=== PATIENT | male | born 1985 | race Caucasian/White ===

== ENCOUNTER 2016-12-08 08:15 | Day surgery (SDC) | payer OTHER ==
[~2016-12-08 08:15] MED LIST: CELE50CA PO; ESOM20CA28 PO; LORA10CA PO; Lidocaine Topical 2% 30 mL Jelly ONE; RANI75TA21 PO
[2017-03-25] MEDS ORDERED: ESOM40CA41 PO (10:10)
[2017-03-25] MEDS ORDERED: CELE50CA PO (10:10)
[2017-03-25] MEDS ORDERED: LORA10CA PO (12:01)
== END 2016-12-08 23:59 | disposition home or self-care (01) ==
LOC: END 08:15
PROVIDERS: ATTEND Internal Medicine Gastroenterology
DX: K21.0 Gastro-esophageal reflux disease with esophagitis (principal)

== ENCOUNTER 2017-03-29 10:02 | Inpatient (IN) | payer OTHER ==
[~2017-03-29] VITALS: Ht 193 cm; Wt 89.7 kg
[2017-03-29] VITALS (7 sets, daily range): BP systolic 122–149; BP diastolic 68–95; PULSE 93–114; RESP 11–20; O2SAT 95–99
[2017-03-29] MEDS: CeFAZolin Inj 2 GM in IV Premix 1 EACH IV SCH ×2 (06:00→13:22)
[~2017-03-29 10:02] MED LIST changes: -ESOM20CA28 PO; +ESOM40CA41 PO; +Lactated Ringer's 1,000 ML IV ONE; -Lidocaine Topical 2% 30 mL Jelly ONE; -RANI75TA21 PO
[2017-03-29] MEDS ORDERED: Rocuronium 10 mg/mL 5 mL Inj ONE (10:03)
[2017-03-29] MEDS ORDERED: Ondansetron 2 mg/mL 2 mL Inj ONE (10:03)
[2017-03-29] MEDS ORDERED: Succinylcholine Chloride 20 mg/mL 5 mL Inj ONE (10:03)
[2017-03-29] MEDS ORDERED: HYDROmorphone 2 mg/mL Inj ONE (10:03)
[2017-03-29] MEDS ORDERED: Dexamethasone 4 mg/mL Inj ONE (10:03)
[2017-03-29] MEDS ORDERED: fentaNYL-PF 50 mCg/mL 2 mL Inj ONE (10:03)
[2017-03-29] MEDS ORDERED: Neostigmine 1 mg/mL 10 mL Inj ONE (10:03)
[2017-03-29] MEDS ORDERED: Propofol 10,000 mCg/mL 20 mL Inj ONE (10:03)
[2017-03-29] MEDS ORDERED: Phenylephrine/NS 100 mCg/mL 10 mL Syringe IVPUSH ONE (10:03)
--- NOTE | 2017-03-29 12:37 | PCM.HPANE ---
Patient Data Date of Service: March 29, 2017 Surgeon Admitting Provider: Attending Provider:Lucille Patel MD Primary Care Physician:Benji Finnegan Other Provider:Laila Burciaga Anesthesia Reason for Visit GERD GERD Ht/WT & BMI Height (Feet): 6 Height (Inches): 4 Weight (Kilograms): 87.7 Body Mass Index 23.00 Allergies Coded Allergies: No Known Allergies (Verified Allergy, Unknown, 08/31/16) Past Anesthesia History Anesthesia History: Denies:: Abnormal Airway, Anesthesia Reactions (requires more anesthetic, consc sedation doesnt work ), Difficult Intubation, Fam Anesthesia Reaction, Fam Malignant Hypertherm, Malignant Hyperthermia Diabetes History Hx Diabetes?: No MRSA MRSA: No (unsure if MRSA- hx of spider bite) Medications Reported Medications Loratadine (Claritin)10 Mg Ponhnfl85 Mg PO DAILY Ref 0 03/25/17 Celecoxib (Celebrex)50 Mg Tpfbsur478 Mg PO BID #30 CAPSULE Ref 0 03/25/17 Esomeprazole Magnesium (Nexium)40 Mg Capsule.dr40 Mg PO DAILY Ref 0 03/25/17 Discontinued Reported Medications Celecoxib (Celebrex)50 Mg Hyeudca99 Mg PO DAILY #30 CAPSULE Ref 0 09/01/16 Loratadine (Claritin)10 Mg Koxykma43 Mg PO DAILY Ref 0 09/01/16 Ranitidine (Zantac OTC)75 Mg Brztez29 Mg PO DAILY #1 PKG Ref 0 08/31/16 Esomeprazole Magnesium (Nexium)20 Mg Capsule.dr20 Mg PO BID Ref 0 09/27/15 History History of ENT Problems?: No HEENT History: Positive for:: Sinus Problem (sinus issues with climate) TMJ (grinds a little - no nightguard) Denies:: Abnormal Airway Cataracts Difficult Intubation Dysphagia Glaucoma Hearing Problem Denture Type: None Teeth Condition: Within Normal Limits Hx of Heart Problems?: No Cardiovascular History: Denies:: AICD Atrial Fibrillation Chest Pain Heart Murmur Hypertension Irregular Heartbeat Pacemaker Valvular Heart Disease Hx of Respiratory Problem?: No Respiratory History: Denies:: Asthma COPD Cough Hemoptysis Oxygen Administration Pneumonia Tuberculosis Use of C-PAP Machine Hx Neurologic Problems?: No Neurological History: Positive for:: Headaches Denies:: CVA Dementia Multiple Sclerosis Parkinson's Disease Seizures Hx of GI Problems?: Yes Gastrointestinal History: Positive for:: Gastroesphageal Reflux Hx of Problems?: No Genitourinary History: Positive for:: Kidney Stones (hx of kidney stones with surgery) Denies:: Urinary Tract Infection Male Hx: Denies:: Prostate Problems Skin History: Denies:: History Skin Disorders? Pressure Ulcers Hx Musculoskeletal Problems?: No Musculoskeletal History: Denies:: Back Injury Fibromyalgia Joint Replacement Musculoskeletal Trauma Myasthenia Gravis Osteoarthritis Systemic Lupus Psycho Social History: Denies:: Anxiety Hx Depression Hx Surgeries?: Yes (APPY, WRIST TO REMOVED CYST, VASECTOMY, URETHROSCOPY, ORAL SXS) Hx Any Other Health Problems?: Yes Other History: Denies:: Cancer Thyroid Disease History Blood Transfusions: Positive for:: Accept Blood Products? Denies:: Blood Transfusions Hx Diabetes: No Hx Alcohol Use: NoHx Substance Use: No Smoking Status: Never Smoker Have You Smoked inLast 12 mo: No Stop/Bang Treated for Sleep Apnea?: No Do You Have a CPAP Machine?: No S-Snoring: Do You Snore Loudly: No T-Tired: feel tired, fatigued: No O-Obsered: Observed not breath: No P-Blood Pressure: treated: No B- Body Mass Index > 35 kg/m2: No A- Age over 50: No N- Neck Large Circumference: No G- Gender Male: Yes LIZABETH Total Score: 1 LIZABETH Risk Assessment: Low Risk, <3 Yes Risk Assessment Category Category 1A: Patient has history of documented sleep apnea, and HAS NOT received any narcotic, sedative or anesthesia administration during this stay. Category 1B: Patient has history of documented sleep apnea, and HAS received any narcotic , sedative or anesthesia administration during this stay Category 2: Patient has SUSPECTED Obstructive Sleep Apnea, and HAS received any narcotic , sedative or anesthesia administration during this stay. Category 3: Patient has SUSPECTED Obstructive Sleep Apnea and HAS NOT received narcotic, sedative or anesthesia administration during this stay. Category 4: Outpatient in Procedural Areas with known sleep apnea or who screen positive for High Risk via the STOP/BANG questionnaire. Exam Exam Vital Signs Vital Signs Date Time Temp Pulse Resp B/P Pulse Ox O2 Delivery O2 Flow Rate FiO2 03/29/17 11:05 36.3 93 14 133/83 General Appearance: Alert, Oriented X3, Cooperative, No Acute Distress HEENT/AIRWAY: MP 2, Neck Movement (FROM), Mouth Opening (>3), Other (TMD>3) Lungs: Clear to Auscultation, Normal Air Movement Heart: Exam Unremarkable, Regular Rate/Rhythm, Normal S1, Normal S2, No Murmurs /Rubs/Gallops Plan Impression Patient chart reviewed, patient interviewed and anesthestic plan with risks, benefits, and alternatives discussed, and informed consent obtained. NPO per Anesth. Guidelines: Yes ASA Physical Status: ASA2 Mod Systemic Disease Anesthetic Plan: GA Bene/Risks/Altern/Consents: Yes HP Complete Prior to Induction: Yes Kojo Centeno MD March 29, 2017 12:37
[2017-03-29] MEDS ORDERED: Lactated Ringer's 1,000 ML IV SCH ×2 (13:42→16:43)
[2017-03-29] MEDS ORDERED: Lactated Ringer's 500 ML IV PRN ×2 (13:42→16:43)
[2017-03-29] MEDS ORDERED: Dexamethasone 4 mg/mL Inj IVPUSH PRN ×2 (13:45→16:45)
[2017-03-29] MEDS ORDERED: Ondansetron 2 mg/mL 2 mL Inj IVPUSH PRN ×2 (13:45→16:45)
[2017-03-29] MEDS ORDERED: EPHEDrine Sulfate 50 mg/mL Inj IVPUSH PRN ×2 (13:45→16:45)
[2017-03-29] MEDS ORDERED: MetoCLOpramide 5 mg/mL 2 mL Inj IVPUSH PRN ×2 (13:45→16:45)
[2017-03-29] MEDS ORDERED: Phenylephrine 10,000 mCg/mL Inj IVPUSH PRN ×2 (13:45→16:45)
[2017-03-29] MEDS ORDERED: HYDROmorphone 1 mg/mL Inj IVPUSH PRN ×2 (13:45→16:45)
[2017-03-29] MEDS ORDERED: fentaNYL-PF 50 mCg/mL 2 mL Inj IVPUSH PRN ×2 (13:45→16:45)
[2017-03-29] MEDS ORDERED: Bupivacaine-MPF 0.5% 30 mL Inj INFILTRATE ONE (13:57)
[2017-03-29] MEDS ORDERED: Lactated Ringer's 1,000 ML IV ONE ×2 (13:58→15:59)
[2017-03-29] MEDS ORDERED: Acetaminophen 32.5 mg/mL 20 mL Liquid PO PRN (16:00)
[2017-03-29] MEDS ORDERED: Ibuprofen Suspension 20 mg/mL 5 mL Suspension PO PRN (16:00)
--- NOTE | 2017-03-29 16:09 | PCM.SURGPO ---
Immediate Operative Note Date of Surgery: March 29, 2017 Pre Operative Diagnosis GERD Post Operative Diagnosis GERD Procedure Laparoscopic repair of hiatal hernia with leroy fundoplication Surgeon and Kitchen Stewardess Surgeon: Lucille Patel MD Assistants: Marysol Longoria MD, Pacheco Quinones, James Vasquez MS3 Findings Small hernia, Some inflammation Complications There were no periprocedural complications identified. Surgical Specimen Removed: No Specimen sent to Pathology: No Anesthetic Administered: GA Grafts, Implants: None Output, Estimated Blood Loss: 5 Blood Admin during surgery: No Attending Statement Ice Puller listed was medically necessary for the successful completion of the case Lucille Patel MD March 29, 2017 16:09
--- NOTE | 2017-03-29 16:45 | PCM.ANEP1 ---
Post Anesthesia Phase 1 PACU Phase 1 Assessment Date of Service: March 29, 2017 Vital Signs Vital Signs Date Time Temp Pulse Resp B/P Pulse Ox O2 Delivery O2 Flow Rate FiO2 03/29/17 11:05 36.3 93 14 133/83 Anesthetic Administered: GA Level of Alertness: Awake, talking ALEXANDER's with Equal Strength: Yes Pain: No Pain Scale Score: 0 Nausea or Vomiting: No Cardiovascular Function and Hy: Yes Oxygen Delivery: Simple Mask Lungs: Normal Air Movement Complications: No Follow up Care: No Comments 03/29/17 11:05 36.3 93 14 133/83 Kojo Centeno MD March 29, 2017 16:45
[2017-03-29] MEDS: Ondansetron 2 mg/mL 2 mL Inj IVPUSH PRN (17:18)
[2017-03-29] MEDS: MetoCLOpramide 5 mg/mL 2 mL Inj IVPUSH PRN ×2 (17:18→21:11)
[2017-03-29] MEDS: D5 0.45% NaCl + KCl 20 mEq/L 1,000 ML IV SCH (18:07)
[2017-03-29] MEDS: oxyCODONE 1 mg/mL 5 mL Liquid PO PRN (21:12)
--- NOTE | 2017-03-29 23:05 | OP ---
[address] [address] OPERATIVE REPORT PATIENT: MOISES KAN : 1985 MR#: [id number] ADMIT: 03/29/2017 JOB ID: [id number] DATE OF SURGERY: 03/29/2017 PREOPERATIVE DIAGNOSIS(ES): Hiatal hernia with gastroesophageal reflux disease. POSTOPERATIVE DIAGNOSIS(ES): Hiatal hernia with gastroesophageal reflux disease. PROCEDURE PERFORMED: Laparoscopic repair of hiatal hernia with Nuzhat fundoplication. COMPLICATIONS: None. CONDITION OF THE PATIENT: Stable. SURGEON: Lucille Patel MD. CHEF DE FROID: Marysol Longoria MD and Pacheco Quinones PA-C and CORINE Mills. INDICATIONS: The patient is a 31-year-old gentleman who has had symptoms of gastroesophageal reflux for the past eight years. He does not smoke. With proton pump inhibitors, his symptoms were improved, but he still has some emesis in the mornings. He had esophagitis and Espinoza's on endoscopy. After performing an esophagram and manometry, we discussed the pros and cons of surgical treatment of his GERD and he is here to proceed. PROCEDURE DETAILS: He was placed in a supine position and underwent smooth induction of general anesthesia. He was then positioned in low lithotomy position after Ott catheter was placed and then the left arm was tucked. Abdomen was prepped and draped in the usual sterile fashion. Surgical time-out was undertaken using safety checklist, and all were in agreement. We entered the abdomen in the left upper quadrant using Veress insufflation followed by Optiview trocar. We placed am 11 mm trocar there in the left upper quadrant and then placed another 11 mm port in the left paramedian position. We then placed an additional 5 mm port laterally in the left and another 5 mm port in the right lower abdomen. Through the right lateral port we placed a liver retractor. Inspection of the anatomy revealed a moderate sliding hiatal hernia. The stomach was grabbed and retracted down for starting mobilizing on the greater curve. The short gastrics were taken down with LigaSure device and dissection proceeded to the hiatus starting on the left. We entered the mediastinum and the dissection was then taken circumferentially over to the right side. The gastrohepatic ligament was divided up to the right anthony and the right-sided dissection was completed, making sure to preserve the crura and the vagi. Once the esophagus was dissected circumferentially, we were able to reduce the stomach into the abdomen and a Janae drain was placed around the esophagus at the gastroesophageal junction for retraction to facilitate more proximal esophageal dissection. We continued this dissection superiorly until we had 5 cm of intra-abdominal esophagus. We then proceeded with the crural closure with interrupted 2-0 silk sutures, two of them posteriorly. The marking stitch was then placed on the posterior fundus 3 cm distal to the GE junction and 2 cm posterior to the greater curvature. This was then brought around posteriorly to align the geometry of the fundoplication. A mirror image location on the anterior fundus was chosen and a shoe shine maneuver was performed to make sure we had a floppy fundoplication. The fundoplication was then performed with three 2-0 silks. A marking stitch and the Janae drain were removed. We then proceeded to suture the fundoplication anteriorly to the distal esophagus and the anterior anthony and posterior aspect of the right side of the fundoplication was sutured to the crural closure and anterior left side of the fundoplication was sutured to the distal esophagus and the anterior left anthony. After that, we closed the 11 mm port fascial sites with 0-Vicryl using Endo-Close devise and skin was reapproximated with 4-0 Monocryl. Steri-Strips and sterile dressing were applied. Patient was recovered from anesthesia and was taken to the recovery room in stable condition. DANIELLE
[2017-03-30] VITALS (10 sets, daily range): BP systolic 116–145; BP diastolic 69–85; PULSE 70–99; RESP 12–20; O2SAT 95–100
[2017-03-30] MEDS: oxyCODONE 1 mg/mL 5 mL Liquid PO PRN ×2 (02:57→08:06)
[2017-03-30] MEDS: D5 0.45% NaCl + KCl 20 mEq/L 1,000 ML IV SCH ×2 (04:30→05:34)
--- NOTE | 2017-03-30 06:42 | PCM.PNSURG ---
Subjective Date of Service: March 30, 2017 Visit Information: Sharon Nuzhat 03/29/17 Post-Op Day # 1 Hospital Day # 2 Subjective: Had some nausea and emesis last night Objective Vital Sign- Last 8 Hours Date Time Temp Pulse Resp B/P Pulse Ox O2 Delivery O2 Flow Rate FiO2 03/30/17 04:33 37.0 86 16 118/69 95 Room Air 03/29/17 23:58 36.8 99 20 122/68 96 Room Air Intake and Output- Last 8 Hour 03/30/17 Cumulative From/Thru 07:00 03/25/17 10:01 - 03/30/17 06:08 Intake Total 1721 ml 3071 ml Output Total 1600 ml 1805 ml Balance 121 ml 1266 ml Intake Oral 800 ml 800 ml IV Total 921 ml 2271 ml Output Urine Total 1600 ml 1800 ml Estimated Blood Loss 5 ml # Bowel Movements 0 0 Lungs: Clear to Auscultation Heart: Regular Rate/Rhythm Abdomen: Soft, Appropriately tender Diagnostics: Upper GI & CT Abdomen consistent with recurrent hiatal hernia with the wrap herniated in to the chest Assessment & Plan Impression Early postoperative recurrence of hiatal hernia, likely from the episode of vomiting last night Problems: Plan NPO, ATTENDING PHYSICIAN, Scheduled antiemetics Planning laparoscopic redo hiatal hernia repair with fundoplication and gastropexy, likely using biologic mesh Discussed risks, benefits and alteratives including watchful waiting. Patient and his understand and wish to proceed. Lucille Patel MD March 30, 2017 06:42
[2017-03-30] MEDS ORDERED: OXYC5SOL11 PO (06:46)
[2017-03-30] MEDS ORDERED: IBUP100O10 PO (06:46)
[2017-03-30] MEDS ORDERED: ACET650S24 PO (06:46)
--- NOTE | 2017-03-30 06:50 | PCM.DISURG ---
Surgical Discharge Instruction Date of Service March 30, 2017 Dates of Hospitalization Date of Hospital Admission Providers Attending Physician: Lucille Patel MD Discharge Diagnosis Post Operative diagnosis GERD s/p Lap Nuzhat fundoplication Diet Discharge Diet: Other (Liquid/pureed diet for two weeks postoperatively. ) Activity Discharge Activity-General: Be up and about, No lifting >15 pounds for 2 weeks Dressing and Incisional Care Dressing Care: Remove outer dressing after 24 hrs Hygiene: May shower Follow Up Plan Follow-up Provider (F9): Lucille Patel MD Follow-up appointment: Weeks (2) Call your provider for: Fever, Chills, Shortness of breath, Increasing abdominal pain, Nausea, Vomiting, Wound redness, Increasing wound pain, Warmth to touch, Discharge @ incision, pus discharge Lucille Patel MD March 30, 2017 06:50
[2017-03-30] MEDS: MetoCLOpramide 5 mg/mL 2 mL Inj IVPUSH PRN (09:11)
[2017-03-30] MEDS ORDERED: Ondansetron 2 mg/mL 2 mL Inj ONE (11:19)
[2017-03-30] MEDS ORDERED: Dexamethasone 4 mg/mL Inj ONE (11:19)
[2017-03-30] MEDS ORDERED: MetoCLOpramide 5 mg/mL 2 mL Inj ONE (11:19)
[2017-03-30] MEDS ORDERED: Phenylephrine/NS-PF 100 mCg/mL 5 mL Syringe IVPUSH ONE (11:19)
[2017-03-30] MEDS ORDERED: fentaNYL-PF 50 mCg/mL 2 mL Inj ONE (11:19)
[2017-03-30] MEDS ORDERED: Propofol 10,000 mCg/mL 20 mL Inj ONE (11:19)
[2017-03-30] MEDS ORDERED: Rocuronium 10 mg/mL 5 mL Inj ONE (11:19)
--- NOTE | 2017-03-30 12:12 | DRSVH ---
PROCEDURE: CT ABDOMEN WITH CONTRAST ([id number]) INDICATIONS: ? Leak/hernia after Nuzhat TECHNIQUE: After the administration of oral and intravenous contrast, 5 mm thick sections acquired from the diap hragms to the iliac crests. 5 mm thick coronal and sagittal reformats were acquired. For radiation dose reduction, the following was used: automated exposure control, adjustment of mA and/or kV accor ding to patient size. COMPARISON: [facility], CR, XR UPPER GI GASTROGRAFIN, 03/30/2017, 8:36. FINDINGS: Image quality: Diagnostic. Lung bases: Bibasilar atelectasis is identified. Pneumomediastinum is noted. The heart is normal in size. Pneumopericardium is likely present, as well. Solid organs: The liver is somewhat hypodense when compared to the spleen. There is a 10 mm low atte nuation lesion within the lateral segment of the left hepatic lobe above the level of the portal vein , which is not adequately characterized and may represent a small cyst. The spleen demonstrates decr eased medial enhancement with minimal subcapsular fluid. The pancreas, adrenals, and kidneys are unr emarkable. There may be a nonobstructing inferior left renal calculus. Peritoneum and bowel: Postoperative changes related to a Nuzhat fundoplication is noted. There is re sidual stomach contents extending above the diaphragmatic hiatus, which contains contrast. No extral uminal contrast is appreciated. Imaged bowel loops are nondilated. No obstruction is evident. No f ree fluid or loculated fluid collection is evident within the abdomen. Punctate foci of free air are evident within the abdomen. Nodes and vessels: No retroperitoneal or mesenteric adenopathy by size criteria. Aorta and inferior vena cava are normal in size. Bones: No suspicious bony lesions. No vertebral body compression fractures. Miscellaneous: No ventral hernias. Subcutaneous air is present within the anterior abdomen, compati ble with the patient's history of recent surgery. IMPRESSION: 1. Postoperative changes at the gastroesophageal junction with the Nuzhat fundoplication wrap appare ntly positioned above the diaphragmatic hiatus. No extraluminal contrast is evident to definitively suggest a leak. If there is high clinical concern for a leak, delayed noncontrast CT imaging would b e of value in approximately 2-4 hours to reevaluate the gastroesophageal junction. 2. Small splenic contusion/laceration/infarction. A small amount of subcapsular fluid is likely rel ated to a subcapsular hematoma. No free fluid is seen within the abdomen. 3. Pneumomediastinum and minimal pneumoperitoneum likely is postoperative. 4. Mild basilar atelectasis. Note: Findings were discussed with Dr. Amador Patel at 1149 hours (PST) on 03/30/17. Dictated by: Chris Yanes M.D. on 03/30/2017 at 10:36 Approved by: Chris Yanes M.D. on 03/30/2017 at 11:10
[2017-03-30] MEDS: HYDROmorphone 1 mg/mL Inj IVPUSH PRN ×3 (12:25→16:19)
[2017-03-30] MEDS: Ondansetron 2 mg/mL 2 mL Inj IVPUSH PRN (13:04)
--- NOTE | 2017-03-30 13:06 | DRSVH ---
PROCEDURE: X-RAY UPPER GI WITH GASTROGRAPHIN ([id number]) INDICATIONS: Nuzhat - please al so assess gastric emptying COMPARISON: None. FINDINGS: KUB: Preprocedural wellness consultant film demonstrates a normal bowel gas pattern. No suspicious abdominal calc ifications. Visualized solid organ contours appear normal. Bony structures appear unremarkable. Esophagus: The patient was able to swallow Gastrografin without difficulty. A small hiatal hernia i s present and there is contrast media seen extending slightly medial to the hiatal hernia near the Ni ssen fundoplication wrap which may be related to incomplete filling of the small hernia but contained extraluminal leak cannot be excluded. IMPRESSION: 1. Small hiatal hernia is present with possible extraluminal contained leak seen just above the Nisse n wrap medial to the hiatal hernia. Recommend chest CT scan for further evaluation. Dr. Longoria telephoned with the results and recommendations at 1015 hrs. 03/30/2017. Dictated by: Tian Bloom [facility] Interpreted: Tanner Mcintosh MD on 03/30/2017 at 10:26 Transcribed by: HENRY on 03/30/2017 at 13:06 Approved by: Tanner Mcintosh M.D. on 03/30/2017 at 14:31
[2017-03-30] MEDS ORDERED: HYDROmorphone PCA 0.2 mg/mL 30 mL Inj IV PRN (13:20)
[2017-03-30] MEDS ORDERED: CeFAZolin Inj 2 GM in IV Premix 1 EACH IV ONE (16:45)
[2017-03-30] MEDS ORDERED: CeFAZolin Inj 2 gm / 50mL D5W IV ONE (16:45)
[2017-03-30] MEDS ORDERED: Acetaminophen IV 1,000 MG in IV Premix 1 EACH IV ONE (17:00)
--- NOTE | 2017-03-30 17:00 | PCM.HPANE ---
Patient Data Surgeon Admitting Provider: Attending Provider:Lucille Patel MD Primary Care Physician:Benji Finnegan Other Provider:Laila Burciaga Anesthesia Reason for Visit GERD GERD Ht/WT & BMI Height (Feet): 6 Height (Inches): 4.00 Weight (Kilograms): 89.000 Body Mass Index 23.60 Allergies Coded Allergies: No Known Allergies (Verified Allergy, Unknown, 08/31/16) Past Anesthesia History Anesthesia History: Positive for:: Anesthesia Reactions (requires more anesthetic, consc sedation doesnt work, PONV), Denies:: Abnormal Airway, Difficult Intubation, Fam Anesthesia Reaction, Fam Malignant Hypertherm, Malignant Hyperthermia Diabetes History Hx Diabetes?: No MRSA MRSA: No (unsure if MRSA- hx of spider bite) Medications Home Meds Incl Beta Coleen: No Active Scripts Acetaminophen (Acetaminophen Liquid)650 Mg/20 Ml Ydjant416 Mg PO Q6H PRN For Mild Pain or Fever #30 DOSE Prov:Lucille Patel MD 03/30/17 oxyCODONE 5 Mg/5 Ml Solution5 Mg PO Q4H PRN For Severe Pain #30 DOSE Prov:Lucille Patel MD 03/30/17 Ibuprofen (Children's Ibuprofen)100 Mg/5 Ml Oral.lovz367 Mg PO Q6H PRN For Pain #30 DOSE Prov:Lucille Patel MD 03/30/17 Reported Medications Loratadine (Claritin)10 Mg Wsgaegt35 Mg PO DAILY Ref 0 03/25/17 Celecoxib (Celebrex)50 Mg Avsliad631 Mg PO BID #30 CAPSULE Ref 0 03/25/17 Esomeprazole Magnesium (Nexium)40 Mg Capsule.dr40 Mg PO DAILY Ref 0 03/25/17 Discontinued Reported Medications Celecoxib (Celebrex)50 Mg Iyohkoi55 Mg PO DAILY #30 CAPSULE Ref 0 09/01/16 Loratadine (Claritin)10 Mg Mawpdui78 Mg PO DAILY Ref 0 09/01/16 Ranitidine (Zantac OTC)75 Mg Hlzazi93 Mg PO DAILY #1 PKG Ref 0 08/31/16 Esomeprazole Magnesium (Nexium)20 Mg Capsule.dr20 Mg PO BID Ref 0 09/27/15 History History of ENT Problems?: No HEENT History: Positive for:: Sinus Problem (sinus issues with climate) TMJ (grinds a little - no nightguard) Denies:: Abnormal Airway Cataracts Difficult Intubation Dysphagia Glaucoma Hearing Problem Denture Type: None Teeth Condition: Within Normal Limits Hx of Heart Problems?: No Cardiovascular History: Denies:: AICD Atrial Fibrillation Chest Pain Heart Murmur Hypertension Irregular Heartbeat Pacemaker Valvular Heart Disease Hx of Respiratory Problem?: No Respiratory History: Denies:: Asthma COPD Cough Hemoptysis Oxygen Administration Pneumonia Tuberculosis Use of C-PAP Machine Hx Neurologic Problems?: No Neurological History: Positive for:: Headaches Denies:: CVA Dementia Multiple Sclerosis Parkinson's Disease Seizures Hx of GI Problems?: Yes Gastrointestinal History: Positive for:: Gastroesphageal Reflux Hiatal Hernia Hx of Problems?: No Genitourinary History: Positive for:: Kidney Stones (hx of kidney stones with surgery) Denies:: Urinary Tract Infection Male Hx: Denies:: Prostate Problems Skin History: Denies:: History Skin Disorders? Pressure Ulcers Hx Musculoskeletal Problems?: No Musculoskeletal History: Denies:: Back Injury Fibromyalgia Joint Replacement Musculoskeletal Trauma Myasthenia Gravis Osteoarthritis Systemic Lupus Psycho Social History: Denies:: Anxiety Hx Depression Hx Surgeries?: Yes (APPY, WRIST TO REMOVED CYST, VASECTOMY, URETHROSCOPY, ORAL SXS) Hx Any Other Health Problems?: Yes Other History: Denies:: Cancer Thyroid Disease History Blood Transfusions: Positive for:: Accept Blood Products? Denies:: Blood Transfusions Hx Diabetes: No Hx Alcohol Use: NoHx Substance Use: No Smoking Status: Never Smoker Have You Smoked inLast 12 mo: No Stop/Bang Treated for Sleep Apnea?: No Do You Have a CPAP Machine?: No S-Snoring: Do You Snore Loudly: No T-Tired: feel tired, fatigued: No O-Obsered: Observed not breath: No P-Blood Pressure: treated: No B- Body Mass Index > 35 kg/m2: No A- Age over 50: No N- Neck Large Circumference: No G- Gender Male: Yes LIZABETH Total Score: 1 LIZABETH Risk Assessment: Low Risk, <3 Yes Risk Assessment Category Category 1A: Patient has history of documented sleep apnea, and HAS NOT received any narcotic, sedative or anesthesia administration during this stay. Category 1B: Patient has history of documented sleep apnea, and HAS received any narcotic , sedative or anesthesia administration during this stay Category 2: Patient has SUSPECTED Obstructive Sleep Apnea, and HAS received any narcotic , sedative or anesthesia administration during this stay. Category 3: Patient has SUSPECTED Obstructive Sleep Apnea and HAS NOT received narcotic, sedative or anesthesia administration during this stay. Category 4: Outpatient in Procedural Areas with known sleep apnea or who screen positive for High Risk via the STOP/BANG questionnaire. Low Risk, <3 Yes Exam Exam General Appearance: Alert, Oriented X3, Cooperative, No Acute Distress HEENT/AIRWAY: MP 2, Neck Movement (FROM), Mouth Opening (>3), Other (TMD>3) Lungs: Clear to Auscultation Heart: Regular Rate/Rhythm Meds/Labs/Diagnostics Admission Meds Current Medications Lactated Ringer's 1,000 ml @ ud STK-MED ONCE IV Last administered on 03/29/17 15:59; Start 03/29/17 at 15:59; Stop 03/29/17 at 16:00; Status DC Potassium Chloride/Dextrose/ Sod Cl (Dextrose 5% 0.45% NaCl + KCl 20 mEq/L) 1, 000 ml @ 80 mls/hr [id number] IV Last administered on 03/30/17 05:34; Start at 16:00 Plan Impression Patient chart reviewed, patient interviewed and anesthestic plan with risks, benefits, and alternatives discussed, and informed consent obtained. NPO per Anesth. Guidelines: Yes ASA Physical Status: ASA2 Mod Systemic Disease Anesthetic Plan: GA Bene/Risks/Altern/Consents: Yes HP Complete Prior to Induction: Yes Sameer Macias DO March 30, 2017 15:35
[2017-03-30] MEDS ORDERED: Lactated Ringer's 1,000 ML IV ONE ×2 (17:05→18:45)
[2017-03-30] MEDS ORDERED: Lactated Ringer's 1,000 ML IV SCH ×2 (17:31→20:29)
[2017-03-30] MEDS ORDERED: Lactated Ringer's 500 ML IV PRN ×2 (17:31→20:29)
[2017-03-30] MEDS ORDERED: EPHEDrine Sulfate 50 mg/mL Inj IVPUSH PRN (17:35)
[2017-03-30] MEDS ORDERED: Atropine 0.4 mg/mL Inj IVPUSH PRN (17:35)
[2017-03-30] MEDS ORDERED: Labetalol 5 mg/mL 4 mL Inj IV PRN (17:35)
[2017-03-30] MEDS ORDERED: Ondansetron 2 mg/mL 2 mL Inj IVPUSH PRN (17:35)
[2017-03-30] MEDS ORDERED: Phenylephrine 10,000 mCg/mL Inj IVPUSH PRN (17:35)
[2017-03-30] MEDS ORDERED: fentaNYL-PF 50 mCg/mL 2 mL Inj IVPUSH PRN (17:35)
[2017-03-30] MEDS ORDERED: hydrALAZINE 20 mg/mL Inj IVPUSH PRN (17:35)
[2017-03-30] MEDS ORDERED: HYDROmorphone 1 mg/mL Inj IVPUSH PRN (17:35)
[2017-03-30] MEDS ORDERED: Bupivacaine-MPF 0.5% 30 mL Inj INFILTRATE ONE (17:45)
--- NOTE | 2017-03-30 19:40 | PCM.SURGPO ---
Immediate Operative Note Date of Surgery: March 30, 2017 Pre Operative Diagnosis Recurrent Hiatal hernia Post Operative Diagnosis Posterior fundus herniated in to the chest Procedure Redo laparoscopic hiatal hernia repair with leroy fundoplication Surgeon and Servomechanism Assembler Surgeon: Lucille Patel MD Assistants: Marysol Longoria MD, Pacheco Quinones, James Vasquez MS3 Findings Posterior fundus herniated in to the chest through a stretched hiatus. All sutures intact Complications There were no periprocedural complications identified. Surgical Specimen Removed: No Specimen sent to Pathology: No Anesthetic Administered: GA Grafts, Implants: None Output, Estimated Blood Loss: 0 Blood Admin during surgery: No Attending Statement Geosciences Professor listed for the operation was medically necessary for the successful completion of the case Lucille Patel MD March 30, 2017 19:40
[2017-03-30] MEDS: MetoCLOpramide 5 mg/mL 2 mL Inj IVPUSH SCH (20:00)
[2017-03-30] MEDS: Acetaminophen IV 1,000 MG in IV Premix 1 EACH IV SCH (20:05)
[2017-03-30] MEDS ORDERED: hydrOXYzine Inj 50 MG/1 mL SDV IM ONE ×2 (20:13→20:45)
--- NOTE | 2017-03-30 20:20 | PCM.ANEP1 ---
Post Anesthesia Phase 1 PACU Phase 1 Assessment Date of Service: March 30, 2017 Vital Signs Vital Signs Date Time Temp Pulse Resp B/P Pulse Ox O2 Delivery O2 Flow Rate FiO2 03/30/17 20:11 80 18 117/75 100 Simple Mask 8 03/30/17 20:06 73 13 116/74 100 Simple Mask 8 03/30/17 19:57 73 12 118/71 100 Simple Mask 8 03/30/17 19:53 36.3 77 13 116/71 100 Simple Mask 8 03/30/17 15:54 36.7 85 16 124/73 97 Room Air Anesthetic Administered: GA Level of Alertness: Sleeping, hard to arouse ALEXANDER's with Equal Strength: Yes Pain: No Pain Scale Score: 0 Nausea or Vomiting: No Cardiovascular Function and Hy: Yes Airway Device: Oralpharangeal Airway Oxygen Delivery: Simple Mask Lungs: Clear to Auscultation Complications: No Follow up Care: No Patient Instructions Provided: Yes Sameer Macias DO March 30, 2017 20:20
[2017-03-30] MEDS ORDERED: EPHEDrine Sulfate 50 mg/mL Inj IM PRN (20:30)
[2017-03-30] MEDS ORDERED: Dexamethasone 4 mg/mL Inj IVPUSH PRN (20:30)
--- NOTE | 2017-03-30 21:03 | OP ---
[address] [address] OPERATIVE REPORT PATIENT: MOISES KAN : 1985 MR#: [id number] ADMIT: 03/29/2017 JOB ID: [id number] DATE OF SURGERY: 03/30/2017 SURGEON: Lucille Patel MD. PREOPERATIVE DIAGNOSIS(ES): Early recurrence of hiatal hernia after laparoscopic Nuzhat fundoplication. POSTOPERATIVE DIAGNOSIS(ES): Recurrent hiatal hernia, specifically herniated posterior fundus after Nuzhat fundoplication. OPERATION PERFORMED: Laparoscopic redo repair of the hiatal hernia with redo Nuzhat fundoplication. COMPLICATION OF THE PATIENT: None. CONDITION OF THE PATIENT: Stable. LOCAL COORDINATOR: Marysol Longoria MD. Pacheco Quinones PA-C. James Vasquez, MS3. INDICATIONS: The patient is a 31-year-old gentleman who has had symptoms of gastroesophageal reflux for a number of years. With proton pump inhibitors, his symptoms improved, but he still has continued to have some emesis. 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 We performed a laparoscopic repair of his hiatal hernia and Nuzhat fundoplication on March 29, 2017. He did have some postoperative emesis on the day of surgery and upper GI and a CT abdomen on postoperative day one, were concerning for recurrent hiatal hernia. After discussing the risks, benefits, and alternatives, he is brought back to the operating room for a redo repair of the hiatal hernia and fundoplication. PROCEDURE DETAILS: He was placed in supine position. Underwent smooth induction of general anesthesia. He had a Ott catheter placed. He was then placed in low lithotomy position and the left arm was tucked. Abdomen was prepped and draped in the usual sterile fashion. Surgical time-out was undertaken using safety checklist, and all were in agreement. I began by opening the 10 mm port site, cutting the sutures, and entered the abdomen bluntly, confirming location with a finger, and obtained pneumoperitoneum. We then placed all the ports back after opening the incisions under direct vision. We then placed the liver retractor and examined the hiatus. The examination of the repair revealed all the sutures intact, but posteriorly the fundus was herniated up into the chest, so before we manipulated it any further, we decided the reason for the herniated posterior fundus was a combination of constriction of the wrap and his postoperative emesis, prompting us to take down the coronal sutures anchoring the fundus to the diaphragm and the fundoplication. The sutures within the crura were intact, but with the herniation, there appeared to be some laxity within the crural opening. After again making sure we had 5 cm of intra-abdominal esophagus, we reinforced the crural repair with two additional sutures posteriorly and one more anteriorly. We then placed a marking stitch on the posterior fundus, 3 cm distal to the GE junction and 2 cm posterior to the greater curvature. This was then brought around posteriorly to align the geometry of the fundoplication. A mirror image location on the anterior fundus was chosen and a shoeshine maneuver was performed to make sure we had a floppy enough fundoplication. We then performed fundoplication, initially using three 2-0 silks and the marking stitch, and the Mcfaddin drain was removed. At this point, there appeared to be a tendency of additional fundus to herniate through again, above the wrap, prompting us to place an additional fundoplication suture including an bite of the esophagus inferiorly, and an additional anchoring suture to anchor the tissue down. We then proceeded to suture the fundoplication posteriorly to the diaphragm on the left side and the right side with silk sutures. We then placed additional coronal sutures anteriorly, including the fundoplication, the esophagus, and the diaphragm, both on the left and the right side. Given the diaphragmatic closure appeared intact and the tissues appeared relatively healthy, and the problem from herniation of the posterior fundus with otherwise intra-abdominal stomach, we did not feel addition of a prosthetic to diaphragmatic repair or gastropexy would add an additional benefit for this patient. At that point, we closed the 11 mm port fascial site with 0-Vicryl using Endoclose device and the pneumoperitoneum was evacuated and then we closed the skin with 4-0 Monocryl. Steri-Strips and sterile dressing were applied. Ott catheter was removed. Patient was recovered from anesthesia and was taken to the recovery room in stable condition.
[2017-03-31] VITALS (11 sets, daily range): BP systolic 111–127; BP diastolic 67–82; PULSE 60–81; RESP 16–18; O2SAT 93–99
[2017-03-31] MEDS: Ondansetron 2 mg/mL 2 mL Inj IVPUSH SCH ×2 (01:33→07:56)
[2017-03-31] MEDS: D5 0.45% NaCl + KCl 20 mEq/L 1,000 ML IV SCH ×2 (02:15→15:50)
[2017-03-31] MEDS: MetoCLOpramide 5 mg/mL 2 mL Inj IVPUSH SCH ×2 (02:57→09:17)
[2017-03-31] MEDS: Acetaminophen IV 1,000 MG in IV Premix 1 EACH IV SCH (03:52)
[2017-03-31] MEDS: Ibuprofen Suspension 20 mg/mL 5 mL Suspension PO PRN ×2 (10:59→18:49)
--- NOTE | 2017-03-31 12:08 | PCM.PNSURG ---
Subjective Date of Service: March 31, 2017 Visit Information: Reason for Visit GERD Surgery/Surgery Date LAP HIATAL HERNIA REPAIR 03/29/17 REDO HIATAL HERNIA REPAIR 03/30/17 Post-Op Day # 1 Date of Admission: March 29, 2017 at 17:13 Hospital Day # 3 Subjective: Feels well. Swallowing without any problem. No Nausea. Objective Vital Sign- Last 8 Hours Date Time Temp Pulse Resp B/P Pulse Ox O2 Delivery O2 Flow Rate FiO2 03/31/17 09:08 36.7 81 18 127/76 96 Room Air 03/31/17 05:55 36.7 60 16 111/67 95 Room Air Intake and Output- Last 8 Hour 03/31/17 Cumulative From/Thru 07:00 03/25/17 10:01 - 03/31/17 06:05 Intake Total 120 ml 5141 ml Output Total 1175 ml 4555 ml Balance -1055 ml 586 ml Intake Oral 120 ml 920 ml IV Total 4221 ml Output Urine Total 1175 ml 4550 ml Estimated Blood Loss 5 ml # Voids 3 3 # Bowel Movements 0 0 Abdomen: Soft, Other (dressings dry) Assessment & Plan Impression Doing well Problems: Plan Pureed diet Nutrition consult Pt reluctant to undergo an upper GI due to concerns about nausea induced Will slowly transition off [employer] if doing well with PO Will plan Discharge tomorrow morning if continues to do well Lucille Patel MD March 31, 2017 12:08
[2017-03-31] MEDS: Acetaminophen 32.5 mg/mL 20 mL Liquid PO PRN ×2 (13:39→19:58)
[2017-03-31] MEDS ORDERED: oxyCODONE 1 mg/mL 5 mL Liquid PO PRN (22:00)
[2017-04-01] MEDS: Ibuprofen Suspension 20 mg/mL 5 mL Suspension PO PRN (01:12)
[2017-04-01 01:14] VITALS: BP 112/68; PULSE 67; RESP 14; O2SAT 97
[2017-04-01 02:30] VITALS: RESP 16; O2SAT 96
[2017-04-01] MEDS: D5 0.45% NaCl + KCl 20 mEq/L 1,000 ML IV SCH (04:06)
[2017-04-01] MEDS: Acetaminophen 32.5 mg/mL 20 mL Liquid PO PRN (04:09)
[2017-04-01 04:12] VITALS: BP 99/66; PULSE 71; RESP 16; O2SAT 96
[2017-04-01] MEDS ORDERED: SCOP1PAT TD (06:59)
[2017-04-01] MEDS ORDERED: ONDA4TAB12 PO (06:59)
[2017-04-01 08:08] VITALS: BP 123/83; PULSE 84; RESP 17; O2SAT 98
--- NOTE | 2017-04-01 09:28 | PCM.PNSURG ---
Subjective Date of Service: April 01, 2017 Visit Information: Reason for Visit GERD Surgery/Surgery Date LAP DEVIN 03/29/17 REDO LAP DEVIN 03/30/17 Post-Op Day # 2 Date of Admission: March 29, 2017 at 17:13 Hospital Day # 4 Subjective: Feels well, tolerating a diet with pain well controlled. Still having diarrhea Objective Vital Sign- Last 8 Hours Date Time Temp Pulse Resp B/P Pulse Ox O2 Delivery O2 Flow Rate FiO2 04/01/17 08:08 36.0 84 17 123/83 98 Room Air 04/01/17 04:12 36.8 71 16 99/66 96 Room Air 04/01/17 02:30 16 96 Intake and Output- Last 8 Hour 04/01/17 Cumulative From/Thru 07:00 03/25/17 10:01 - 04/01/17 05:54 Intake Total 1258 ml 8697 ml Output Total 4555 ml Balance 1258 ml 4142 ml Intake Oral 400 ml 1740 ml IV Total 858 ml 6957 ml Output Urine Total 4550 ml Estimated Blood Loss 5 ml # Voids 1 4 # Bowel Movements 0 0 Abdomen: Soft Assessment & Plan Impression Doing well Problems: Plan Discharge Home F/U in 2 weeks Check C diff Pureed/ full liquid diet Lucille Patel MD April 01, 2017 09:28
--- NOTE | 2017-04-01 10:42 | PCM.DC.SUR ---
Discharge Summary Date of Service: Date of Hospital Admission: March 29, 2017 at 17:13 Date of Operation(s): 03/29/2017 03/30/2017 Date of Discharge: 04/01/2017 Diagnosis at Time of Discharge Primary diagnoses: 1. Hiatal hernia with gastroesophageal reflux disease 2. Recurrent hiatal hernia, specifically herniated posterior fundus after Nuzhat fundoplication. 3. Espinoza's esophagitis Other chronic conditions: 1. Hyperlipidemia 2. Kidney stones Problems: Operation 1. Laparoscopic repair of hiatal hernia with Nuzhat fundoplication. 2. Laparoscopic redo repair of the hiatal hernia with redo Nuzhat fundoplication. Brief History and Physical: The patient is a 31-year-old gentleman who had symptoms of gastroesophageal reflux for eight years. He does not smoke. With proton pump inhibitors, his symptoms were improved, but he still had some emesis in the mornings. He had esophagitis and Espinoza's on endoscopy. Consultants: None Hospital Course: The patient was admitted and underwent the first above-mentioned operation without complication. During the evening following his operation he had retching and vomiting. The following morning CT scan demonstrated fundal wrap in his chest. He returned to the operating room for the second above-mentioned operation on his first postsurgical day. Following this the patient received scheduled antibiotics. He was unwilling to undergo a swallow study for fear of nausea/vomiting. Diet was initiated and the patient was able to be discharged on the second postsurgical day following his second operation. Pathology: None Disposition: The patient was discharged to home on the second postsurgical day following his second operation drinking a pured full liquid diet. Follow-up Plan: He will follow-up in the office with Dr. Patel in 2 weeks. Acetaminophen (Acetaminophen Liquid) 650 Mg/20 Ml Liquid 650 MG PO Q6H PRN PRN For Mild Pain or Fever Celecoxib (Celebrex) 50 Mg Capsule 100 MG PO BID (Reported) Esomeprazole Magnesium (Nexium) 40 Mg Capsule.dr 40 MG PO DAILY (Reported) Ibuprofen (Children's Ibuprofen) 100 Mg/5 Ml Oral.susp 400 MG PO Q6H PRN PRN For Pain Loratadine (Claritin) 10 Mg Capsule 10 MG PO DAILY (Reported) Ondansetron ODT (Ondansetron ODT) 4 Mg Tab.rapdis 4 MG PO Q4 PRN PRN For Nausea/ Vomiting Scopolamine (Transderm-Scop) 1 Each Patch.td72 1 EACH TD Q3DAY PRN PRN For Nausea oxyCODONE (oxyCODONE) 5 Mg/5 Ml Solution 5 MG PO Q4H PRN PRN For Severe Pain Pacheco Quinones PA-C April 01, 2017 10:42
== END 2017-04-01 11:20 | disposition home or self-care (01) | DRG 328 ==
LOC: SAS 10:02 → OSC 17:13 → SAS 17:13 → OSC 17:13
PROVIDERS: ADMIT Student in an Organized Health Care Education/Training Program; ATTEND Student in an Organized Health Care Education/Training Program
PROC: 0DV44ZZ Restriction of Esophagogastric Junction, Percutaneous Endoscopic Approach (ICD-10-PCS; principal; 2017-03-29 12:30)
PROC: 0DV44ZZ Restriction of Esophagogastric Junction, Percutaneous Endoscopic Approach (ICD-10-PCS; 2017-03-30)
DX: K21.0 Gastro-esophageal reflux disease with esophagitis (principal); K44.9 Diaphragmatic hernia without obstruction or gangrene; K91.0 Vomiting following gastrointestinal surgery; K20.8 Other esophagitis; K22.70 Barrett's esophagus without dysplasia; E78.5 Hyperlipidemia, unspecified